=== PATIENT | male | born 1985 | race American Indian/Alaskan Native ===

== ENCOUNTER 2017-08-06 22:27 | Emergency (ER) | payer SELFPAY ==
[2017-08-06 23:23] VITALS: BP 107/69
--- NOTE | 2017-08-07 00:39 | Emergency Department Report ---
Chief Complaint: Urogenital-Male Stated Complaint: PAIN IN PENIS Time Seen by Provider: 08/07/17 00:35 - HPI History of Present Illness: 32-year-old male presents to ED complaining of pain with urination and dysuria 4 days. Patient states he only sexually active with his girlfriend. Patient denies fevers/abdominal pain/penile pain/scrotum or testicular swelling/penile lesions, no problems defecating, hematuria - ROS Review of Systems: As noted in HPI - Exam Vital Signs: Vital Signs 08/06/17 23:14 Temperature 98.3 F Pulse Rate 72 Respiratory 18 Rate Blood Pressure 107/69 O2 Sat by Pulse 97 Oximetry Physical Exam: GENERAL: Alert and oriented x3, no apparent distress, Normal Gait, atraumatic. HEAD: Head is normocephalic and a-traumatic. MSE screening note: Focused history and physical exam performed. Due to findings the following was ordered: ED Medical Decision Making - Medical Decision Making 32-year-old male presents for STD check I discussed with the patient and this is is nonmedical emergency and would have to speak to registration about a fee Patient unable to pay fee, so he basically screened out I discussed the patient and gave him [facility] referral She is stable he is in no acute or respiratory distress he sitting comfortably in the ED room. Referrals given ED Disposition for MSE Clinical Impression: Screen for STD (sexually transmitted disease) Disposition: DC- TO HOME OR SELFCARE Is pt being admited?: No Does the pt Need Aspirin: No Condition: Stable Additional Instructions: If you have any worsening symptoms or develop new symptoms please return to ED immediately. Referrals: NONI JEWELL MD [Primary Care Provider] - 3-5 Days [facility] [Outside] - 3-5 Days [facility] [Outside] - 3-5 Days Forms: Work/School Release Form(ED) Time of Disposition: 00:42
[2017-08-07 00:58] LABS: Bacteria,Urine 1+ /HPF (Negative); Bilirubin,Urine NEG (Negative); Blood,Urine NEG (Negative); Color,Urine Yellow (Yellow); Protein,Urine <15 mg/dL mg/dL (Negative); Urobilinogen,Urine < 2.0 mg/dL (<2.0)
[2017-08-07 01:06] LABS: WBC,Urine > 182.0 /HPF (0.0-6.0)
== END 2017-08-07 00:53 | disposition left against medical advice (07) ==
LOC: ED 22:27
DX: Z11.3 Encounter for screening for infections with a predominantly sexual mode of transmission (principal); R30.0 Dysuria
CPT/HCPCS: 81001; 99283